=== PATIENT | female | born 1960 | race Caucasian/White ===

== ENCOUNTER 2020-10-04 12:42 | Outpatient (CLI) | payer BC ==
[~2020-10-04 12:42] MED LIST: Lidocaine 1% PF 5 ML VIAL ONE
== END 2020-10-04 12:43 | disposition home or self-care (01) ==
LOC: CSHULT 12:42
PROVIDERS: ATTEND Internal Medicine Infectious Disease
PROC: 02H633Z Insertion of Infusion Device into Right Atrium, Percutaneous Approach (ICD-10-PCS; principal; 2020-10-04)
PROC: B548ZZA Ultrasonography of Superior Vena Cava, Guidance (ICD-10-PCS; principal; 2020-10-04)
DX: R22.32 Localized swelling, mass and lump, left upper limb (principal); A41.9 Sepsis, unspecified organism; R65.21 Severe sepsis with septic shock; N17.9 Acute kidney failure, unspecified; E87.2 Acidosis; L03.115 Cellulitis of right lower limb; E11.621 Type 2 diabetes mellitus with foot ulcer; L97.509 Non-pressure chronic ulcer of other part of unspecified foot with unspecified severity; Z79.4 Long term (current) use of insulin; E78.5 Hyperlipidemia, unspecified; I73.9 Peripheral vascular disease, unspecified; I25.10 Atherosclerotic heart disease of native coronary artery without angina pectoris; E66.9 Obesity, unspecified; Z68.37 Body mass index [BMI] 37.0-37.9, adult; I11.0 Hypertensive heart disease with heart failure; I50.9 Heart failure, unspecified; Z20.822 Contact with and (suspected) exposure to COVID-19
CPT/HCPCS: 36415; 36416; 36569; 71045; 80048; 80053; 83036; 83605; 83735; 85025; 85610; 85730; 87040; 87077; 87149; 87186; C1751; J0692; J0696; J1815; J3490; U0002